=== PATIENT | female | born 2000 | race Caucasian/White ===

== ENCOUNTER 2020-12-02 14:08 | Outpatient (RCR) | payer MEDICAID, SELFPAY ==
[2020-12-02 14:11] VITALS: BP 122/70; PULSE 69
== END 2020-12-04 14:38 | disposition home or self-care (01) ==
LOC: HO.PT 14:08
PROVIDERS: PCP Student in an Organized Health Care Education/Training Program; Visit Provider Student in an Organized Health Care Education/Training Program
DX: R42 Dizziness and giddiness (principal)
CPT/HCPCS: 97110; 97161

== ENCOUNTER 2022-02-26 15:38 | Outpatient (REF) | payer MEDICAID, SELFPAY ==
--- NOTE | ~2022-02-26 | US_ITS ---
EXAMINATION: US PELVIS CLINICAL INFORMATION: Irregular bleeding, last menstrual period beginning of month. COMPARISON: None TECHNIQUE: Ultrasound of the pelvis is performed using both transabdominal and transvaginal transducers along with Doppler. Transvaginal imaging is performed due to inadequate visualization transabdominally. FINDINGS: The uterus is heterogeneous and measures 7.1 x 3.0 x 4.8 cm. No discrete fibroids. Endometrial thickness is 0.2 cm. Small amount of fluid within the endometrial cavity. No significant free fluid. Left ovary is unremarkable and measures 2.6 x 2.4 x 2.0 cm, volume 6.5 mL. Right ovary measures 3.1 x 2.2 x 2.1 cm, volume 7.6 mL. A 2.0 x 1.4 x 1.4 cm right ovarian cyst is mildly complex with a few low-level internal echoes. US/US pelvic and transvaginal IMPRESSION: 1. A 2.0 cm right ovarian cyst is mildly complex with a few low-level internal echoes. 2. Endometrial thickness 0.2 cm. Small amount of fluid within the endometrial cavity.
== END 2022-02-26 15:39 | disposition home or self-care (01) ==
LOC: HO.US 15:38
PROVIDERS: Visit Provider Family Medicine
DX: N93.9 Abnormal uterine and vaginal bleeding, unspecified (principal)
CPT/HCPCS: 76830; 76856

== ENCOUNTER 2022-07-08 12:36 | Outpatient (REF) | payer MEDICAID, SELFPAY ==
[2022-07-08 18:36] LABS: CT PCR NOT DETECTED (Not Detect.); NG PCR NOT DETECTED (Not Detect.)
[2022-08-14 02:33] LABS: HPV mRNA E6/E7 rflx Not Detected (Not Detected)
== END 2022-07-08 12:37 | disposition home or self-care (01) ==
LOC: HO.LNP 12:36
PROVIDERS: Visit Provider Obstetrics & Gynecology
DX: Z01.419 Encounter for gynecological examination (general) (routine) without abnormal findings (principal)
CPT/HCPCS: 87491; 87591; 87624; 88142

== ENCOUNTER 2022-08-11 14:35 | Outpatient (REF) | payer MEDICAID, SELFPAY ==
--- NOTE | ~2022-08-11 | US_ITS ---
EXAMINATION: US PELVIS CLINICAL INFORMATION: Ovarian cyst on ultrasound of 02/06/2022, last menstrual period 3 weeks ago. COMPARISON: 02/26/2022 TECHNIQUE: Ultrasound of the pelvis is performed using both transabdominal and transvaginal transducers along with Doppler. Transvaginal imaging is performed due to inadequate visualization transabdominally. FINDINGS: The uterus is heterogeneous and measures 6.3 x 3.4 x 4.6 cm. No discrete fibroid. Endometrial thickness is 0.4 cm. Small amount of fluid within the endometrial cavity. Fluid within the endocervical canal. No significant free fluid. Left ovary is unremarkable and measures 2.8 x 2.2 x 1.6 cm, volume 5.2 mL. Right ovary measures 3.3 x 2.3 x 2.1 cm, volume 8.3 mL. Right ovarian cyst measures 1.5 x 1.4 x 1.3 cm and is mildly complex with a few low-level internal echoes. Previous exam demonstrated 2.0 x 1.4 x 1.4 cm mildly complex right ovarian cyst. US/US pelvic and transvaginal IMPRESSION: 1. A 1.5 cm right ovarian cyst is mildly complex with a few low-level internal echoes, decreased in size. 2. Endometrial thickness 0.4 cm Small amount of fluid again demonstrated within the endometrial cavity.
== END 2022-08-11 14:36 | disposition home or self-care (01) ==
LOC: HO.US 14:35
PROVIDERS: Visit Provider Obstetrics & Gynecology
DX: N83.299 Other ovarian cyst, unspecified side (principal)
CPT/HCPCS: 76830; 76856

== ENCOUNTER 2022-08-18 12:20 | Outpatient (REF) | payer MEDICAID, SELFPAY ==
[2022-08-20 10:18] LABS: CA-125 3 U/mL (<35)
== END 2022-08-18 12:21 | disposition home or self-care (01) ==
LOC: HO.LAB 12:20
PROVIDERS: Visit Provider Obstetrics & Gynecology
DX: N83.299 Other ovarian cyst, unspecified side (principal); R87.610 Atypical squamous cells of undetermined significance on cytologic smear of cervix (ASC-US)
CPT/HCPCS: 36415; 86304; 99212

== ENCOUNTER 2022-10-13 13:12 | Outpatient (REF) | payer MEDICAID, SELFPAY ==
--- NOTE | ~2022-10-13 | US_ITS ---
EXAMINATION: US PELVIS CLINICAL INFORMATION: Ovarian cyst. COMPARISON: Ultrasound pelvis 08/11/2022. TECHNIQUE: Ultrasound of the pelvis was performed using the transabdominal transducer. The patient refused transvaginal ultrasound. FINDINGS: Uterus: The uterus is anteverted, anteflexed and measures 8.8 cm in length, 3.4 cm AP and 4.7 cm wide. The double wall endometrial thickness is 0.6 cm. The uterus is smooth in contour and has normal myometrial echogenicity. No visible fibroid. Adnexa: Both ovaries are visualized. There is normal color flow to the adnexa. There is no ovarian torsion. There is no pelvic ascites or fluid collection. Right ovary measures 2.4 x 1.6 x 1.5 cm and volume 3.0 mL. There are a few anechoic cysts with the largest cyst measuring 0.6 x 0.8 x 0.8 cm. Previously, right ovary measured 3.3 x 2.3 x 2.1 cm. Left ovary measures 2.8 x 2.9 x 2.6 cm and volume 11.0 mL. There is an anechoic cyst measuring 2.1 x 2.1 x 1.9 cm. There is no free fluid in the cul-de-sac. US/US pelvic complete IMPRESSION: Bilateral simple ovarian cysts. No follow up is needed. The previously seen slightly complex right ovarian 1.5 cm cyst is not visualized at this time. Left ovarian cyst measures 2.1 cm. There is no free fluid in the cul-de-sac.
== END 2022-10-13 13:13 | disposition home or self-care (01) ==
LOC: HO.US 13:12
PROVIDERS: Visit Provider Obstetrics & Gynecology
DX: N83.299 Other ovarian cyst, unspecified side (principal)
CPT/HCPCS: 76856

== ENCOUNTER → 2022-11-25 14:54 | Outpatient (BNVA) | payer MEDICAID, SELFPAY | PROVIDERS: Visit Provider Obstetrics & Gynecology | DX: N83.299 Other ovarian cyst, unspecified side (principal) | CPT/HCPCS: 99212 ==

== ENCOUNTER 2023-10-05 15:29 | Outpatient (AMB) | payer MEDICAID, SELFPAY ==
--- NOTE | 2023-10-05 15:35 | A.OFFVIS_ITS ---
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 No complaints. The patient is interested in STD screen Last Pap was in 07/29 ascus/HPV negative [facility] Social History Household Members Other:: mom Housing: Apartment Alcohol intake: current Alcohol intake frequency: holidays/special occasions only Patient Tobacco Use Status: Never used Tobacco Use of substances other than those prescribed or required for medical reasons: Yes Substance Use Type: Marijuana Current occupational status: employed Current occupation: [employer] Sexually active: Yes Sexual orientation: Straight/Heterosexual Gender identity: Female Female Reproductive History Menstrual Age of Menarche: 15 Date of last menstrual period: 09/14/23 control method: none Total pregnancies: 0 Date of last pap smear: 07/09/22 Review of Systems Const All systems reviewed & are unremarkable except as noted in HPI and below Card Reports as per HPI Resp Reports as per HPI GI Reports as per HPI and Reports no additional complaints Reports as per HPI Physical Exam Vital Signs: Last Vital Signs BP 108/66 10/05/23 15:38 BMI result Body Mass Index 23.3 Const General: cooperative, healthy appearing and comfortable Chest Chest palpation & inspection: normal inspection of the chest and normal palpation of entire chest wall Breast/axilla inspection: normal inspection of the breasts and normal inspection of the axillae Breast/axilla palpation: normal palpation of the breasts, normal palpation of the axillae and no axillary lymphadenopathy Resp Effort & Inspection: normal respiratory effort Auscultation: clear to auscultation bilaterally Percussion: percussion normal Cardio Palpation: normal PMI Rate: regular rate Rhythm: regular rhythm Heart sounds: no murmurs and no rubs Peripheral pulses: Peripheral pulses 2+ throughout GI Inspection: Yes normal to inspection Palpation (GI): Soft to palpation, nontender, no guarding, not rigid and No hepatosplenomegaly present Percussion: Yes normal to percussion Auscultation: normal bowel sounds Rectal Exam - Female: deferred General: Yes bladder normal to palpation External Female Exam: No lesion Speculum Exam - Vagina: normal appearance of the vagina, normal palpation, normal vaginal discharge and not erythematous Speculum Exam - Cervix: normal appearance of the cervix and normal palpation Bimanual exam- vagina & uterus: normal bimanual exam, normal palpation, uterine size normal, bladder normal to palpation, consistency normal and normal palpation Bimanual Exam- Adnexa, other: normal adnexae, no masses and no tenderness Assessment & Plan Assessment & Plan (1) Well woman exam: Code(s): Z01.419 - Encounter for gynecological examination (general) (routine) without abnormal findings Plan: Pap smear not indicated this year. Counseled the patient about the recommended dietary allowance of 1000 mg of Maury cium & 600 IU of vitamin D. The patient was instructed to perform monthly self-breast exams , to call for any changes in menstrual patterns and to schedule an annual exam in a year; all questions answered and the patient verbalized understanding. (2) Screen for STD (sexually transmitted disease): Code(s): Z11.3 - Encounter for screening for infections with a predominantly sexual mode of transmission Plan: STD screening tests done includes: BV panel for trichomonas, GC/CT will send pat ient for serology std screening for HIV, RPR, Hep b s Ag, HepC Ab. Instructions given the patient to schedule a follow-up appointment for repeat serology screen in 6 months for possible false negatives. Orders: Orders Hepatitis B Surface Antigen Today Z20.2 - Contact with and (suspected) exposure to infections with a predominantly sexual mode of transmission HIV Ab/Ag Today Z20.2 - Contact with and (suspected) exposure to infections with a predominantly sexual mode of transmission Syphilis Screen Today Z20.2 - Contact with and (suspected) exposure to infections with a predominantly sexual mode of transmission Hepatitis C Antibody Today Z20.2 - Contact with and (suspected) exposure to infections with a predominantly sexual mode of transmission Coding Level of Care Code Est Pt Prev Care 18-39y([id number]) Diagnoses Well woman exam Z01.419 Screen for STD (sexually transmitted disease) Z11.3
[2023-10-05 15:38] VITALS: BP 108/66; BMI 23.3
== END 2023-10-05 16:16 | disposition home or self-care (01) ==
LOC: HO.HWS 15:30
PROVIDERS: Visit Provider Obstetrics & Gynecology
DX: Z01.419 Encounter for gynecological examination (general) (routine) without abnormal findings (principal); Z11.3 Encounter for screening for infections with a predominantly sexual mode of transmission
CPT/HCPCS: 99395

== ENCOUNTER 2023-10-05 15:29 | Outpatient (REF) | payer MEDICAID, SELFPAY | END 2023-10-05 15:30 | disposition home or self-care (01) | LOC: HO.LNP 15:29 | PROVIDERS: Visit Provider Obstetrics & Gynecology | DX: Z01.419 Encounter for gynecological examination (general) (routine) without abnormal findings (principal); Z20.2 Contact with and (suspected) exposure to infections with a predominantly sexual mode of transmission | CPT/HCPCS: 99395 ==

== ENCOUNTER 2023-10-05 16:06 | Outpatient (REF) | payer MEDICAID, SELFPAY ==
[2023-10-06 04:09] LABS: Syphilis Screen Nonreactive (Nonreactive)
[2023-10-06 04:36] LABS: HBsAGNum1 0.39 S/CO (0.00-0.99); HIV AB/AG Nonreactive (Nonreactive); HIV Num 1 0.07 S/CO (0.00-0.99); Hepatitis B Surface Antigen Negative (Negative); ~Hepatitis C Antibody Nonreactive (Nonreactive)
[2023-10-06 06:00] LABS: CT PCR NOT DETECTED (Not Detect.); NG PCR NOT DETECTED (Not Detect.)
[2023-10-07 16:13] LABS: BV Int Neg Control Negative (Negative); BV Int Pos Control Positive (Positive)
== END 2023-10-05 16:07 | disposition home or self-care (01) ==
LOC: HO.LAB 16:06
PROVIDERS: Visit Provider Obstetrics & Gynecology
DX: Z20.2 Contact with and (suspected) exposure to infections with a predominantly sexual mode of transmission (principal)
CPT/HCPCS: 0353U; 86780; 86803; 87340; 87389; 87480; 87510; 87660; 99395

== ENCOUNTER 2024-02-16 11:14 | Outpatient (REF) | payer MEDICAID, SELFPAY ==
[2024-02-16 18:21] LABS: Bacterial Vaginosis PCR NEGATIVE (Negative); Candida Group PCR NOT DETECTED (Not Detect); Candida glab krusei PCR NOT DETECTED (Not Detect); Trichomonas vaginalis PCR NOT DETECTED (Not Detect)
[2024-02-17 08:23] LABS: HIV AB/AG Nonreactive (Nonreactive); HIV Num 1 0.07 S/CO (0.00-0.99); ~HepC Num1 0.09 S/CO (0.00-0.79); ~Hepatitis C Antibody Nonreactive (Nonreactive)
[2024-02-17 21:33] LABS: RPR Rapid Plasma Reagin NON-REACTIVE (NON-REACTIVE)
== END 2024-02-16 11:15 | disposition home or self-care (01) ==
LOC: HO.CHCLDS 11:14
PROVIDERS: Visit Provider Student in an Organized Health Care Education/Training Program
DX: N89.8 Other specified noninflammatory disorders of vagina (principal)
CPT/HCPCS: 0352U; 36415; 86592; 86803; 87389

== ENCOUNTER 2024-11-15 14:14 | Outpatient (REF) | payer SELFPAY ==
--- OUTSIDE RECORDS SUMMARY | 2024-11-15 17:01 | XMS_ITS | Encounter Summary ---
Author Organization [employer] Address [address] 7 [place] [address] Care Team Providers Care Journeyman Power Plant Operator Name Role Phone Kera Martines MD Primary Care Provider [phone] Reason for Visit * Reason Onset Date Comments Appointment Request 11/12/2024 Encounter Details Date Type Department Care Team ([facility] st Contact Info) Description 11/12/2024 Telephone [facility] MEDICINE [address] [place] [address] Kera Martines MD [address] [place] [address] Appointment Request Social History Tobacco Use Types Packs/Day Years Used Date Smoking Tobacco: Never Passive Smoke Exposure: Never Smokeless Tobacco: Never Alcohol Use Standard Drinks/Week Comments Not Currently 0 (1 standard drink = 0.6 oz pur e alcohol) Depression Answer Date Recorded Patient Health Questionnaire-9 Score 10 02/16/2024 Patient Health Questionnaire-9 Score 10 02/16/2024 Last PHQ-9: Questionnaire Data Not on file 0 02/16/2024 Housing Stability Answer Date Recorded What is your housing situation today? I have lucio astudillo 02/06/[address] you li ve. Do you have problems with any of the following? None of the above 02/06/2024 Food Insecurity Answer Date Recorded Within the past 12 months, y ou worried that your food would run out before you got money to buy more: Never True 02/06/2024 Within the past 12 months,th e food you bought just didn't last and you didn't have enough money to get more: Never True 08/2023 Transportation Answer Date Recorded In the past 12 months, has l ack of transportation kept you from medical appts, meetings, work or from getting things needed for daily living? No 02/06/2024 Utilities Answer Date Recorded In the past 12 months, has t he electric, gas, oil or water company threatened to shut off services in your home? No 02/06/2024 Depression Answer Date Recorded Patient Health Questionnaire-2 Score 2 02/16/2024 Internet Access Answer Date Recorded Internet Access Q1 No 04/09/2024 Internet Access Q2 I do not want or need it 09/2023 Comments No Sex and Gender Information Value Date Recorded Sex Assigned at Female 06/07/2022 10:31 AM EDT Legal Sex Female 10:31 AM EDT Gender Identity Choose not to disclose 10:31 AM EDT Sexual Orientation Straight 02/16/2024 4: 01 PM EDT documented as of this encounter Miscellaneous Notes * Telephone Encounter - Netta Stroud RN - 11/12/2024 11:15 AM EDT TC to patient. She has questions regarding risks and benefits of Nexplanon and other control methods. Appointment scheduled for 11/15/24 * Telephone Encounter - Rowena Cochran - 11/12/2024 10:50 AM EDT Tc from pt requesting appointment to be seen soon by next month due to pt requesting to go on birthcontrol. Please return call for appointment [phone] documented in this encounter Plan of Treatment Upcoming Encounters Date Type Department Care Team (Late st Contact Info) Description 12/13/2024 11:00 AM EDT Office Visit [facility] MED & PEDS [address] [place] [address] Kera Martines MD [address] [place] [address] 02/20/2025 10:15 AM EDT Office Visit [facility] MED & PEDS [address] [place] [address] Kera Martines MD [address] [place] [address] 02/26/2025 1:30 PM EDT Office Visit [facility] OPTOMETRY [address] [place] [address] Anushka Perez, OD [address] [place] [address] documented as of this encounter Visit Diagnoses Not on filedocumented in this encounter Additional Health Concerns Assessment Noted Time PHQ-9 Depression Total Score: 10 024 10:50 AM EDT documented as of this encounter Care Teams Journeyman Power Plant Operator Relationship Specialty Start Date End Date Kera Martines MD [address] [place] [address] PCP - General Family Medicine 09/30/20 documented as of this encounter
--- OUTSIDE RECORDS SUMMARY | 2024-11-15 17:01 | XMS_ITS | Encounter Summary ---
Author Organization [employer] Address [address] [place] [address] 7 [place] [address] Care Team Providers Care Voice Professor Name Role Phone Kera Martines MD Primary Care Provider [phone] Reason for Visit * Reason Onset Date Comments Insurance 11/14/2024 Encounter Details Date Type Department Care Team ([facility] st Contact Info) Description 11/14/2024 Telephone [facility] MED & PEDS [address] [place], [place] [id number] Kera Martines MD [address] [place] [address] Insurance Social History Tobacco Use Types Packs/Day Years [...] encounter Miscellaneous Notes * Telephone Encounter - George Estes - 11/14/2024 2:42 PM EDT Outgoing call informed pt that insurance is reflecting a different pcp/loc. Pt stated she would call them today on 11/14/24 to make change. documented in this encounter Plan of Treatment Upcoming Encounters Date Type Department Care Team ([facility] st Contact Info) Description 12/13/2024 11:00 AM EDT Office Visit [facility] MED & PEDS [address] [place] [address] Kera Martines MD [address] [place] [address] 02/20/2025 10:15 AM EDT Office Visit [facility] MED & PEDS [address] [place] [address] Kera Martines MD [address] [place] [address] 02/26/2025 1:30 PM EDT Office Visit [facility] OPTOMETRY [address] [place] [address] Anushka Perez, OD [address] [place] [address] documented as of this encounter Visit Diagnoses Not on filedocumented in this encounter Additional Health Concerns Assessment Noted Time PHQ-9 Depression Total Score: 10 024 10:50 AM EDT documented as of this encounter Care Teams Voice Professor Relationship Specialty Start Date End Date Kera Martines MD [address] [place] [address] PCP - General Family Medicine 09/30/20 documented as of this encounter
--- OUTSIDE RECORDS SUMMARY | 2024-11-15 17:01 | XMS_ITS | Encounter Summary ---
Author Organization [employer] Address [address] [place] [address] Care Team Providers Care Doctor Of Podiatric Medicine Name Role Phone Kera Martines MD Primary Care Provider [phone] Reason for Visit * Reason Comments Gynecologic Exam Encounter Details Date Type Department Care Team ([facility] st Contact Info) Description 11/15/2024 1:15 PM EDT Office Visit [facility] MED & PEDS [address] [place] [address] Darlene Patterson, WYATT [address] [place] [address] Family planning counseling (Primary Dx); Encntr screen for infections w sexl mode of transmiss Social History Tobacco Use Types Packs/Day Years [...] PM EDT documented as of this encounter Last Filed Vital Signs Vital Sign Reading Time Taken Comments Blood Pressure 128/73 11/15/2024 1:25 PM EDT Pulse 78 11/15/2024 1:25 PM EDT Temperature 36.7 ??C (98.1 ??F) 11/15/2024 1:25 PM ED T Respiratory Rate 20 11/15/2024 1:25 PM EDT Oxygen Saturation 98% 11/15/2024 1:25 PM EDT Inhaled Oxygen Concentration - - Weight 62.7 kg (138 lb 3.2 oz) 11/15/2024 1:25 P M EDT Height 162.6 cm (5' 4 ) 11/15/2024 1:25 PM EDT Body Mass Index 23.72 11/15/2024 1:25 PM EDT documented in this encounter Progress Notes * Darlene Patterson CNM - 11/15/2024 1:15 PM EDTAssociated Order(s): Insertion/Removal of Contraceptive Capsule Subjective Patient ID: Luana Pickard is a 24 y.o. adult who presents for control counseling Previously used Nexplanon. Would like Nexplanon again. 1 AMAB partner since 06/2024, no safety concerns. Not planning in the next year. test negative today. Not sexually active since LMP. No contraindications to Nexplanon. LMP 11/03. Would like STI testing today. Currently being treated for bacterial vaginosis. Bacterial vaginosis/vulvovaginal candidiasis/trichomonas, HIV, syphilis, Hep C neg 02/2024. Patient seen in conjunction with MIREYA Medina student. I was present for and confirmed all pertinent elements in the history, exam, assessment of the patient, and the plan of care, and agree with all findings. Review of Systems Objective BP 128/73 (BP Location: Left arm, Patient Position: Sitting, BP Cuff Size: Adult) Pulse 78 Temp98.1 ??F (36.7 ??C) (Oral) Resp 20 Ht 5' 4 (1.626 m) Wt 138 lb 3.2 oz (62.7 kg) LMP 11/03/2024 (Exact Date) SpO2 98% BMI 23.72 kg/m?? Physical Exam Constitutional: Appearance: Normal appearance. Neurological: Mental Status: Abreanna is alert. Psychiatric: Mood and Affect: Mood normal. Behavior: Behavior normal. Assessment/Plan Diagnoses and all orders for this visit: Family planning counseling - POCT , urine manually resulted - etonogestrel-eluting 68 mg contraceptive implant 1 each Reviewed normal side effects and danger signs. Report arm pain, redness, heavy bleeding. Leave pressure dressing on for 24h, Band-Aid for 3-5days. Expect irregular bleeding, or less likely, no bleeding at all. Report if implant not palpable. Return in 4wks for follow up. Advised to use additional control for 7 days. 100% condoms encouraged for STI prevention. Reviewed that Nexplanon is FDA approved for 3y, but research supports extended use up to 5 years Insertion/Removal of Contraceptive Capsule Date/Time: 11/15/2024 2:02 PM Performed by: Darlene Patterson CNM Authorized by: Darlene Patterson CNM Confirmed correct patient, procedure, site, and patient consented: Yes Participating Staff: Darlene Patterson CNM Participating Staff: TAMY Medina student Consent: Consent obtained: Verbal and written Consent given by: Patient Procedural risks and benefits discussed: Yes Patient questions answered: yes Patient agrees, verbalizes understanding, and wants to proceed: yes Educational handouts given: yes Instructions and paperwork completed: yes Indication: Indication: insertion of non-biodegradable drug delivery implant Pre-procedure: Pre-procedure timeout performed: yes Prepped with: povidone-iodine Local anesthetic: 2ml 2% lidocaine. The site was cleaned and prepped in a sterile fashion: yes Procedure: Procedure: Insertion Preloaded contraceptive capsule trocar was placed subdermally: yes Visualization of implant was obtained: yes Contraceptive capsule was inserted and trocar removed: yes Visualization of notch in stylet and palpation of device: yes Palpation confirms placement by provider and patient: yes Site was closed with steri-strips and pressure bandage applied: yes Encntr screen for infections w sexl mode of transmiss - Chlamydia/N. Gonorrhoeae RNA, TMA, Urogenitial - HIV-1/2 Antigen and Antibodies, Fourth Generation, with Reflexes - Syphilis Screen; Future - Chlamydia/N. Gonorrhoeae RNA, TMA, Urogenitial Insufficient urine for Gonorrhea/Chlamydia. Self collected swab sent, serum labs ordered. Will contact with results. Advised to schedule appt with PCP to followup on new onset easy bruising. Denies nosebleeds or bleeding gums. documented in this encounter Plan of Treatment Upcoming Encounters Date Type Department Care Team ([facility] Contact Info) Description 12/13/2024 11:00 AM EDT Office Visit [facility] MED & PEDS [address] [place] [address] Kera Martines MD [address] [place] [address] 02/20/2025 10:15 AM EDT Office Visit [facility] MED & PEDS [address] [place] [address] Kera Martines MD [address] [place] [address] 02/26/2025 1:30 PM EDT Office Visit [facility] OPTOMETRY [address] [place] [address] Anushka Perez, OD [address] [place] [address] Scheduled Orders Name Type Priority Associated Diagnoses Orde r Schedule Chlamydia/N. Gonorrhoeae RNA, TMA, Urogenitial Microbiology Routine Encntr screen for infections w sexl mode of transmiss Ordered: 11/15/2024 HIV-1/2 Antigen and Antibodies, Fourth Generation, with Reflexes Lab Routine Encntr screen for infections w sexl mode of transmiss Ordered: 11/15/2024 Syphilis Screen Lab Routine Encntr screen for infections w sexl mode of transmiss Expected: 11/15/2024, Expires: 11/15/2025 Chlamydia/N. Gonorrhoeae RNA, TMA, Urogenitial Microbiology Routine Encntr screen for infections w sexl mode of transmiss Ordered: 11/15/2024 documented as of this encounter Procedures Procedure Name Priority Date/Time Associated Diagnosis Comments [place] INSERTION DRUG DELIVERY IMPLANT Routine 11/15/2024 2:02 PM EDT Family planning counseling POCT , URINE Routine 11/15/2024 1:54 PM EDT Family planning counseling documented in this encounter Results * [place] INSERTION DRUG DELIVERY IMPLANT (11/15/2024 2:02 PM EDT) Darlene Lemus CNM - 11/15/2024 2:02 PM EDT Darlene Patterson CNM ? 11/15/2024 ??2:14 PM Insertion/Removal of Contraceptive Capsule Date/Time: 11/15/2024 2:02 PM Performed by: Darlene Patterson CNM Authorized by: Darelne Patterson CNM ?? Confirmed correct patient, procedure, site, and patient consented: Yes ?? Participating Staff: ??Darlene Patterson CNM Participating Staff: ??Fernanda Villalpando RN NP student Consent: ??Consent obtained: ??Verbal and written ??Consent given by: ??Patient ??Procedural risks and benefits discussed: Yes ?Patient questions answered: yes ?Patient agrees, verbalizes understanding, and wants to proceed: yes ?Educational handouts given: yes ?Instructions and paperwork completed: yes ?? Indication: ??Indication: insertion of non-biodegradable drug delivery implant ?? Pre-procedure: ??Pre-procedure timeout performed: yes ?Prepped with: povidone-iodine ?Local anesthetic: 2ml 2% lidocaine. ??The site was cleaned and prepped in a sterile fashion: yes ?? Procedure: ??Procedure: ??Insertion ??Preloaded contraceptive capsule trocar was placed subdermally: yes ?Visualization of implant was obtained: yes ?Contraceptive capsule was inserted and trocar removed: yes ?Visualization of notch in stylet and palpation of device: yes ?Palpation confirms placement by provider and patient: yes ?Site was closed with steri-strips and pressure bandage applied: yes ?? Darlene Patterson CNM IN CLINIC/BEDSIDE ORDERAB LES Final Result * POCT , urine manually resulted (11/15/2024 1:54 PM EDT) Preg Test, Ur Negative Negative, Indeterminate, None Detected, Invalid, Specimen unsatisfactory for evaluation, Weakly Positive QC Media Lot # [id number] Lot# Expiration Date ,[id number] Urine 11/15/2024 1:54 PM EDT Darlene Patterson CNM POINT OF CARE TEST ENTER/ EDIT ORDERABLES Final Result documented in this encounter Visit Diagnoses Diagnosis Family planning counseling- Primary Other general counseling and advice for contraceptive management Encntr screen for infections w sexl mode of transmiss documented in this encounter Administered Medications Inactive Administered Medications - up to 3 most recent administrations Medication Order MAR Action Action Date Dose Rate Site etonogestrel-eluting 68 mg contraceptive implant 1 each 1 each, Implant, Once, On Sonia 11/15/24 at 1415, For 1 doseIndications:Family planning counseling Given 11/15/2024 1:55 PM EDT 1 each documented in this encounter Additional Health Concerns Assessment Noted Time PHQ-9 Depression Total Score: 10 024 10:50 AM EDT documented as of this encounter Care Teams Doctor Of Podiatric Medicine Relationship Specialty Start Date End Date Kera Martines MD [address] [place] [address] PCP - General Family Medicine 09/30/20 documented as of this encounter
--- OUTSIDE RECORDS SUMMARY | 2024-11-15 17:01 | XMS_ITS | Encounter Summary ---
Author Organization [employer] Address [address] [place] [address] 7 [place] [address] Care Team Providers Care Enamel Buffer Name Role Phone Kera Martines MD Primary Care Provider [phone] Reason for Visit * Reason Onset Date Comments Reschedule PCP out 11/15/2024 Encounter Details Date Type Department Care Team ([facility] Contact Info) Description 11/15/2024 Telephone [facility] [address] [place] [address] Kera Martines MD [address] [place] [address] Reschedule PCP out Social History Tobacco Use Types Packs/Day Years [...] encounter Miscellaneous Notes * Telephone Encounter - Denny Klein MA - 11/15/2024 9:27 AM EDT Call pt to reschedule appt 11/15/2024 at 11:30 am due PCP out. Pt agree to be schedule today 11/15/2024 at 1:15 pm with Darlene. documented in this encounter Plan of Treatment Upcoming Encounters Date Type Department Care Team (Late st Contact Info) Description 12/13/2024 11:00 AM EDT Office Visit [facility] [address] [place] [address] Kera Martines MD [address] [place] [address] 02/20/2025 10:15 AM EDT Office Visit [facility] [address] [place] [address] Kera Martines MD [address] [place] [address] 02/26/2025 1:30 PM EDT Office Visit [facility] [address] [place], [place] [phone] Anushka Perez, OD [address] [place] [address] documented as of this encounter Visit Diagnoses Not on filedocumented in this encounter Additional Health Concerns Assessment Noted Time PHQ-9 Depression Total Score: 10 024 10:50 AM EDT documented as of this encounter Care Teams Enamel Buffer Relationship Specialty Start Date End Date Kera Martines MD [address] [place] [address] PCP - General Family Medicine 09/30/20 documented as of this encounter
--- OUTSIDE RECORDS SUMMARY | 2024-11-15 17:01 | XMS_ITS | Clinical Summary ---
Author Organization [email or web address] Address [address] [place] [address] [address] [place] [address] Care Team Providers Care Automobile Taillight Assembler Name Role Phone Kera Martines MD Primary Care Provider [phone] Allergies No known active allergies Medications cetirizine (ZyrTEC) 10 MG tablet Take 1 tablet (10 mg) by mouth in the morning. 30 tablet 11 3 Active azelastine (Astelin) 0.1 % nasal spray Administer 1 spray into each nostril 2 times daily. Use in each nostril as directed 30 mL 12 3 Active Hospital, Clinic, or Other Facility Administered Medication Ordered Dose Route Frequency Start Date End Date Status etonogestrel-eluting 68 mg contraceptive implant 1 eachIndications:Family planning counseling 1 each [place] Once 11/15/2024 11/15/2024 Ended Active Problems Problem Noted Date Diagnosed Date Environmental allergies 06/22/2023 Encounters Date Type Department Care Team Description 11/15/2024 1:15 PM EDT Office Visit [facility] [address] [place] [address] Darlene Patterson CNM Family planning counseling (Primary Dx); Encntr screen for infections w sexl mode of transmiss 11/15/2024 Telephone [facility] [address] [place] [address] Kera Martines MD Reschedule PCP out 11/15/2024 Travel 11/14/2024 Telephone [facility] [address] [place] [address] Kera Martines MD Insurance 11/12/2024 Telephone [facility] MEDICINE [address] [place] [address] Kera Martines MD Appointment Request 08/21/2024 Telephone [facility] WALK-IN CENTER [address] [place] [address] Kera Martines MD Chart Prep 08/21/2024 Telephone [facility] CHC MED & PEDS [address] [place] [address] Kera Martines MD Nurse Triage from Last 3 Months Immunizations Name Administration Dates Next Due DTaP 12/02/2003, 3,03/27/2002,04/14,2000 HPV 9-Valent 03/07/2017,08/30/2012 Hep A, ped/adol, 2 dose 03/07/2017,08/30/2012 Hep B, Adolescent or Pediatric 3,03/27/2002,04/14/2001,12/26,2000 HiB, unspecified 05/10/2003 Hib (HbOC) 04/14/2001 Hib (PRP-T) 2000 IPV 12/02/2003, 2,04/14/2001,12/21 Influenza, injectable, quadr ivalent, preservative free, pediatric 05/01/2009 MMR 12/02/2003,05/10/2003 Meningococcal MCV4P ACYW-135 03/07/2017,08/30/19 13 Pfizer Covid-19 Vaccine 12+ 01/22/2021, 1 Pneumococcal Conjugate PCV 7 05/10/2003, 03/27/2002,04/14/2001,12/21 Tdap 02/16/2024,08/30/2012 Varicella 05/01/2009,05/10/2003 Social History Tobacco Use Types Packs/Day Years Used Date Smoking Tobacco: Never Passive Smoke Exposure: Never Smokeless Tobacco: Never Tobacco Cessation:Counseling Given: Not Answered Alcohol Use Standard Drinks/Week Comments Not Currently [...] Orientation Straight 02/16/2024 4: 01 PM EDT Last Filed Vital Signs Vital Sign Reading [...] Mass Index 23.72 11/15/2024 1:25 PM EDT Plan of Treatment Upcoming Encounters Date Type Department Care Team (Late st Contact Info) Description 12/13/2024 11:00 AM EDT Office Visit [facility] [address] [place], [place] [phone] Kera Martines MD [address] [place], [place] [phone] 02/20/2025 10:15 AM EDT Office Visit [facility] [address] [place], [place] [phone] Kera Martines MD [address] [place], [place] [phone] 02/26/2025 1:30 PM EDT Office Visit [facility] OPTOM[facility] [address] [place], [place] [phone] Chris, Anushka, OD [address] [place] [address] Health Maintenance Due Date Last Done Comments Alcohol/Substance Use Screening 2012 Pap Smear 2021 COVID-19 Vaccine ( season) 2024 10/01/2021, 01/22/2021, 12/31/2020 Influenza Vaccine (#1) 2024 05/01/2009 Depression Monitoring 08/18/2024 02/16/2024, 024 Depression Screening 02/15/2025 02/16/2024, 02/16/20 24 SDOH Screening 02/15/2025 02/16/2024 Family Planning (PISQ) 11/15/2025 11/15/2024 Tobacco Screening 11/15/2025 11/15/2024 DTaP/Tdap/Td Vaccines (7 - Td or Tdap) 02/15/2034 02/16/2024, 08/30/2012, 12/02/2003, Additional history exists Zoster Vaccines (1 of 2) 2050 RSV Patients and Patients Aged 60 years or older (1 - 1-dose 75+ series) 10/24/2075 HIB Vaccines Completed 05/10/2003, 02/2001, 2000 Hepatitis B Vaccines Completed 05/10/2003, 03/27/2002, 04/14/2001, Additional history exists Pneumococcal Vaccine: Pediatrics (0 to 5 Years) and At-Risk Patients (6 to 49) Years) Aged Out 05/10/2003, 03/27/2002, 04/14/2001, Additional history exists No longer eligible based on patient's age to complete this topic IPV Vaccines Completed 12/02/2003, 03/09, 04/14/2001, Additional history exists HPV Vaccines Completed 03/07/2017, 08/30/2012 Hepatitis A Vaccines Completed 03/07/2017, 08/30/19 13 Meningococcal Vaccine Completed 03/07/2017, 013 HIV Screening Completed 02/16/2024, 10/17/2019 Hepatitis C Screening Completed 02/16/2024, 020 RSV under 20 months Aged Out No longe r eligible based on patient's age to complete this topic Rotavirus Vaccines Aged Out No longer eligible based on patient's age to complete this topic Procedures Procedure Name Priority Date/Time Associated Diagnosis Comments NJ INSERTION DRUG DELIVERY IMPLANT Routine 11/15/2024 2:02 PM EDT Family planning counseling POCT , URINE Routine 11/15/2024 1:54 PM EDT Family planning counseling HEPATITIS C AB W/REFL TO HCV RNA, QN, PCR Routine 02/16/2024 11:15 AM EDT Vaginal discharge HIV 1/2 ANTIGEN/ANTIBODY, FOURTH GENERATION W/RFL Routine 02/16/2024 11:15 AM EDT Vaginal discharge from Last 3 Months or Most Recently Relevant to Health Maintenance Results * NJ INSERTION DRUG DELIVERY IMPLANT (11/15/2024 2:02 PM EDT) Narrative Darlene Patterson CNM - 11/15/2024 2:02 PM EDT Darlene Patterson CNM ? 11/15/2024 ??2:14 PM Insertion/Removal of Contraceptive Capsule Date/Time: 11/15/2024 2:02 PM Performed by: Darlene Patterson CNM Authorized by: Darlene Patterson CNM ?? Confirmed correct patient, procedure, [...] Media Lot # [id number] Lot# Expiration Date 194, Urine 11/15/2024 1:54 PM EDT Darlene Patterson CNM POINT OF CARE TEST ENTER/ EDIT ORDERABLES Final Result * Hepatitis C Antibody with Reflex to HCV, RNA, Quantitative, Real-Time PCR (02/16/2024 11:15 AM EDT) Hepatitis C Antibody Nonreactive Nonreactive [facility] Comment:Antibodies to HCV no t detected; does not exclude early acuteHCV infection. Blood Venous blood specimen / Unknown 02/16/2024 11:15 AM EDT 02/16/2024 2:39 PM EDT Kera Martines MD LAB BLOOD ORDERABLES Final Resul t Performing Organization Address City/[facility]/ZIP Co de Phone Number [facility] [address] [place] [phone] * HIV-1/2 Antigen and Antibodies, Fourth Generation, with Reflexes (02/16/2024 11:15 AM EDT) HIV AB/AG Nonreactive Nonreactive [facility] Comment:HIV-1 p24 Ag and/or HIV-1/HIV-2 Ab not detected.A test result that is nonreactive does not exclude thepossibility of exposure to or infection with HIV-1 and/orHIV-2. Nonreactive results in this assay for individualswith prior exposure to HIV-1 and/or HIV-2 may be due toantigen and antibody levels that are below the limit ofdetection of this assay.The [employer] HIV Ag/Ab Combo assay result andsupplemental assay results should be interpreted inconjunction with the patient's clinical presentation,history and other laboratory results. If the results areinconsistent with clinical evidence, additional testing issuggested to confirm the result. Blood Venous blood specimen / Unknown 02/16/2024 11:15 AM EDT 02/16/2024 2:39 PM EDT us Kera Martines MD LAB BLOOD ORDERABLES Final Resul t [facility] [address] [place] [phone] from Last 3 Months or Most Recently Relevant to Health Maintenance Insurance [facility] Care Teams Automobile Taillight Assembler Relationship Specialty Start Date End Date Kera Martines MD [address] [place] [phone] PCP - General Family Medicine 09/30/20
--- OUTSIDE RECORDS SUMMARY | 2024-11-15 17:01 | XMS_ITS | Encounter Summary ---
Author Organization [employer] Address [address] [facility] [address] [place] [address] Care Team Providers Care Sharepoint Application Developer Name Role Phone Kera Martines MD Primary Care Provider [phone] Encounter Details Date Type Department Care Team (Latest Contact Info) Description 11/15/2024 Travel Social History Tobacco Use Types Packs/Day Years [...] PM EDT documented as of this encounter Plan of Treatment Upcoming Encounters Date Type Department Care Team (Late st Contact Info) Description 12/13/2024 11:00 AM EDT Office Visit [facility] MED & PEDS [address] [place] [address] Kera Martines MD [address] [place] [address] 02/20/2025 10:15 AM EDT Office Visit [facility] MED [facility] PEDS [address] [place] [address] Kera Martines MD [address] [place] [address] 02/26/2025 1:30 PM EDT Office Visit [facility] OPT[facility] [address] [place] [address] Chris, Anushka, OD [address] [place] [address] documented as of this encounter Visit Diagnoses Not on filedocumented in this encounter Additional Health Concerns Assessment Noted Time PHQ-9 Depression Total Score: 10 024 10:50 AM EDT documented as of this encounter Care Teams Sharepoint Application Developer Relationship Specialty Start Date End Date Kera Martines MD [address] [place] [address] PCP - General Family Medicine 09/30/20 documented as of this encounter
[2024-11-16 03:51] LABS: Syphilis Screen Nonreactive (Nonreactive)
[2024-11-16 04:07] LABS: CT PCR NOT DETECTED (Not Detect.); NG PCR NOT DETECTED (Not Detect.)
[2024-11-16 04:24] LABS: HIV AB/AG Nonreactive (Nonreactive); HIV Num 1 0.08 S/CO (0.00-0.99)
== END 2024-11-15 14:15 | disposition home or self-care (01) ==
LOC: HO.CHCLDS 14:14
PROVIDERS: Visit Provider Advanced Practice Midwife
DX: Z11.3 Encounter for screening for infections with a predominantly sexual mode of transmission (principal)
CPT/HCPCS: 36415; 86780; 87389; 87491; 87591